=== PATIENT | female | born 2000 | race Two or more races ===

== ENCOUNTER 2024-11-02 22:30 | Emergency (ER) | payer OTHER ==
[~2024-11-02] VITALS: Ht 160 cm; Wt 67.6 kg
[2024-11-03] MEDS ORDERED: ONDANSETRON HCL/PF 4 MG/2 ML VIAL ONE (00:57)
[2024-11-03] MEDS ORDERED: ACETAMINOPHEN ES 500 MG TABLET ONE (00:57)
[2024-11-03] MEDS ORDERED: KETOROLAC TROMETHAMINE 15 MG/ML VIAL ONE (00:57)
[2024-11-03 01:03] LABS: PLATELET COUNT (AUTO) 224 K/uL (150-450); RED BLOOD CELL COUNT(AUTO) 5.10 MIL/uL (4.0-5.2); RED CELL DISTRIBUTION WIDTH 12.7 % (11.5-15.0); WHITE BLOOD COUNT (AUTO) 6.4 K/uL (4.3-11.0)
[2024-11-03] MEDS: ONDANSETRON HCL/PF 4 MG/2 ML VIAL IV ONE (01:05)
[2024-11-03] MEDS: ACETAMINOPHEN ES 500 MG TABLET PO ONE (01:05)
[2024-11-03] MEDS: IV NS 0.9% 1,000 ML BAG IV ONE (01:05)
[2024-11-03 01:15] LABS: CALCIUM, SERUM 8.9 mg/dL (8.5-10.1); CREATININE 0.7 mg/dL (0.6-1.3); SODIUM SERUM 135.0 mmol/L (136-145); UREA NITROGEN, BLOOD 13.0 mg/dL (7-18)
[2024-11-03 01:20] LABS: ASPARTATE AMINOTRANSFERASE 12.0 U/L (15-37); TOTAL PROTEIN, SERUM 7.9 g/dL (6.4-8.2)
[2024-11-03] MEDS ORDERED: IV NS 0.9% 250 ML IV ONE (01:21)
[2024-11-03] MEDS ORDERED: CT SWABBABLE VALVE TRANS SET 1 EA INFUS.SET MC ONE (01:22)
[2024-11-03 01:23] LABS: LACTIC ACID 1.3 mmol/L (0.4-2.0)
[2024-11-03 02:10] LABS: APPEARANCE,URINE SLIGHTLY CLOUDY (CLEAR); BLOOD, URINE TRACE-INTA Ery/uL (NEGATIVE); LEUKOCYTE ESTERASE ,URINE NEGATIVE (NEGATIVE); NITRITE, URINE NEGATIVE (NEGATIVE); UGLUCOSE NEGATIVE (NEGATIVE)
[2024-11-03 02:11] LABS: PREGNANCY TEST URINE QUAL NEGATIVE (NEGATIVE)
[2024-11-03] MEDS: KETOROLAC TROMETHAMINE 15 MG/ML VIAL IV ONE (02:13)
[2024-11-03 02:31] LABS: ADD URINE CULTURE NO; SQUAMOUS EPITHELIAL CELL,UR Few /HPF (None Seen)
[2024-11-03] MEDS ORDERED: ACET-3102 PO (03:00)
[2024-11-03] MEDS ORDERED: ONDA4TAB5 PO (03:00)
[2024-11-03] MEDS ORDERED: NAPR-1069 PO (03:00)
[2024-11-03 03:20] VITALS: BP 110/60; TEMP 98; O2SAT 96
== END 2024-11-03 03:22 | disposition home or self-care (01) ==
LOC: ER 22:34
DX: N83.201 Unspecified ovarian cyst, right side (principal); R10.31 Right lower quadrant pain; R11.0 Nausea; R10.2 Pelvic and perineal pain
CPT/HCPCS: 99285; 74177; 96374; 96361; 96375; 85025; 87040 ×2; 83605; 83690; 83735; 84703; 81001; 36415; 80053; 86140; 84702; J1885; J2405; J7030; J7050